=== PATIENT | female | born 1975 | race Caucasian/White ===

== ENCOUNTER → 2017-11-03 | Outpatient (CLI) | payer BC ==
--- NOTE | 2017-11-04 11:13 | MM ---
Reason for exam: screening (asymptomatic). Last mammogram was performed 1 year and 3 months ago. Physical Findings: A clinical breast exam by your physician is recommended on an annual basis and results should be correlated with mammographic findings. MG 3D Screening Mammo W/Cad Bilateral CC and MLO view(s) were taken. Prior study comparison: August 08, 2016, bilateral MG screening mammo w CAD. The breast tissue is heterogeneously dense. This may lower the sensitivity of mammography. There is a 4.6cm central slightly medial asymmetry at middle depth on the left breast 4cm from nipple. There is a 9.8mm area of distortion associated with a focal asymmetry in the lower inner quadrant of the left breast 7-8cm from nipple. ASSESSMENT: Incomplete: need additional imaging evaluation, BI-RAD 0 RECOMMENDATION: Special view mammogram of the left breast. If lesion persists on supplemental views, image directed ultrasound is recommended. [facility] will attempt to contact patient to return for supplemental views and ultrasound if indicated.
== END | disposition home or self-care (01) ==
LOC: RADMAMWWP 12:29
PROVIDERS: ATTEND Obstetrics & Gynecology
DX: Z12.31 Encounter for screening mammogram for malignant neoplasm of breast (principal)
CPT/HCPCS: 77063; G0202

== ENCOUNTER → 2018-05-18 | Outpatient (CLI) | payer BC ==
--- NOTE | 2018-05-18 08:59 | MM ---
Reason for exam: follow-up at short interval from prior study. Last mammogram was performed 6 months ago. History: Took hormonal contraceptives for 6 years beginning at age 22. Physical Findings: Nurse did not find any significant physical abnormalities on exam. MG 3D Diag Mammo W/Cad LT CC and MLO view(s) were taken of the left breast. Technologist: Allyssa Saldaña RT (R)(M) Prior study comparison: November 12, 2017, left breast MG 3d work up w/cad LT. November 03, 2017, bilateral MG 3d screening mammo w/cad. The breast tissue is heterogeneously dense. This may lower the sensitivity of mammography. 8 o'clock focal asymmetry is unchanged for 6 months. Additional short interval follow up recommended. Patient will be due for annual exam of the right breast at that time. These results were verbally communicated with the patient and result sheet given to the patient on 05/18/18. ASSESSMENT: Probably benign, BI-RAD 3 RECOMMENDATION: Follow-up diagnostic mammogram of both breasts in 6 months.
== END | disposition home or self-care (01) ==
LOC: RADMAMWWP 08:20
PROVIDERS: ATTEND Obstetrics & Gynecology
DX: R92.8 Other abnormal and inconclusive findings on diagnostic imaging of breast (principal)
CPT/HCPCS: 77061; 77065

== ENCOUNTER → 2018-11-16 | Outpatient (CLI) | payer BC ==
--- NOTE | 2018-11-16 10:17 | MM ---
Reason for exam: follow-up at short interval from prior study. Last mammogram was performed 6 months ago. History: Took hormonal contraceptives for 6 years beginning at age 22. Physical Findings: Nurse Summary: nodule in the right breast at 1 o'clock, 8 o'clock and 9 o'clock (nurse ms). MG 3D Diag Mammo W/Cad [facility] Bilateral CC and MLO view(s) were taken. Prior study comparison: May 18, 2018, left breast MG 3d diag mammo w/cad LT. November 12, 2017, left breast MG 3d work up w/cad LT. The breast tissue is heterogeneously dense. This may lower the sensitivity of mammography. Medial left breast nodularity is smaller than prior. Inferior asymmetry is unchanged from 2016. No significant new findings when compared with previous films. These results were verbally communicated with the patient and result sheet given to the patient on 11/16/18. ASSESSMENT: Benign, BI-RAD 2 RECOMMENDATION: Routine screening mammogram of both breasts in 1 year.
== END ==
LOC: RADMAMWWP 08:55
PROVIDERS: ATTEND Obstetrics & Gynecology
DX: R92.8 Other abnormal and inconclusive findings on diagnostic imaging of breast (principal)
CPT/HCPCS: 77062; 77066

== ENCOUNTER → 2020-11-28 | Outpatient (CLI) | payer BC ==
--- NOTE | 2020-11-29 14:13 | MM ---
Reason for exam: screening (asymptomatic). Last mammogram was performed 2 years ago. History: Took hormonal contraceptives for 6 years beginning at age 22. Physical Findings: A clinical breast exam by your physician is recommended on an annual basis and results should be correlated with mammographic findings. MG 3D Screening Mammo W/Cad Bilateral CC and MLO view(s) were taken. Prior study comparison: November 16, 2018, bilateral MG 3d diag mammo w/cad [facility]. May 18, 2018, left breast MG 3d diag mammo w/cad LT. The breast tissue is extremely dense which could obscure a lesion on mammography. No significant changes when compared with prior studies. ASSESSMENT: Benign, BI-RAD 2 RECOMMENDATION: Routine screening mammogram of both breasts in 1 year.
== END | disposition home or self-care (01) ==
LOC: RADMAMWWP 08:34
PROVIDERS: ATTEND Obstetrics & Gynecology
DX: Z12.31 Encounter for screening mammogram for malignant neoplasm of breast (principal)
CPT/HCPCS: 77063; 77067

== ENCOUNTER → 2022-06-21 | Outpatient (CLI) | payer BC ==
--- NOTE | 2022-06-22 02:23 | MR ---
EXAMINATION TYPE: MR shoulder RT wo con DATE OF EXAM: 06/21/2022 COMPARISON: None HISTORY: Right shoulder pain, decreased ROM. Multiplanar multiecho imaging of the right shoulder with no contrast. The subscapularis tendon is intact. Biceps tendon is intact. There is minute shoulder joint effusion. AC joint is intact. Subscapularis tendon is intact. The glenoid babak appear intact. The supraspinatus tendon is intact. The infraspinatus tendon is intact. There is a small linear area of decreased signal in the glenoid that could be old healed fracture line. IMPRESSION: No evidence of rotator cuff tear. Linear area of decreased signal in the glenoid without bone edema c ould be an old fracture.
== END | disposition home or self-care (01) ==
LOC: RADMRIMAIN 18:24
PROVIDERS: ATTEND Family Medicine
DX: S46.001A Unspecified injury of muscle(s) and tendon(s) of the rotator cuff of right shoulder, initial encounter (principal); X58.XXXA Exposure to other specified factors, initial encounter

== ENCOUNTER → 2022-08-22 | Outpatient (CLI) | payer BC ==
--- NOTE | 2022-08-23 07:36 | MM ---
Reason for Exam: Screening (asymptomatic). Last mammogram was performed 1 year(s) and 9 month(s) ago. Patient History: Menarche at age 15. First Full-Term at age 29. Hormonal Contraceptives for 6 years from age 22 until age 28. Risk Values: Ana 5 year model risk: 0.9%. NCI Lifetime model risk: 10.6%. Prior Study Comparison: 05/18/2018 Left Diagnostic Mammogram, [facility]. 11/16/2018 Bilateral Diagnostic Mammogram, [facility]. 11/28/2020 Bilateral Screening Mammogram, [facility]. Tissue Density: The breast tissue is heterogeneously dense. This may lower the sensitivity of mammography. Findings: Analyzed By CAD. There is no suspicious group of microcalcifications. Asymmetry demonstrated within the left breast centrally middle depth on the CC view. Overall Assessment: Incomplete: need additional imaging evaluation, BI-RAD 0 Management: Diagnostic Mammogram of the left breast. A clinical breast exam by your physician is recommended on an annual basis and results should be correlated with mammographic findings. [facility] will attempt to contact patient to return for supplemental views and ultrasound if indicated. Electronically signed and approved by: Raheel Valle D.O.
== END | disposition home or self-care (01) ==
LOC: RADMAMWWP 07:16
PROVIDERS: ATTEND Obstetrics & Gynecology
DX: Z12.31 Encounter for screening mammogram for malignant neoplasm of breast (principal)
CPT/HCPCS: 77063; 77067

== ENCOUNTER → 2022-08-29 | Outpatient (CLI) | payer BC ==
--- NOTE | 2022-08-29 15:03 | MM ---
Reason for Exam: Additional evaluation requested from prior study. Last screening mammogram was performed less than 1 month ago. Patient History: Menarche at age 15. First Full-Term at age 29. Hormonal Contraceptives for 6 years from age 22 until age 28. Risk Values: Ana 5 year model risk: 0.9%. NCI Lifetime model risk: 10.6%. Prior Study Comparison: 11/16/2018 Bilateral Diagnostic Mammogram, [facility]. 11/28/2020 Bilateral Screening Mammogram, [facility]. 08/22/2022 Bilateral MG 3D screening mammo w/cad, [facility]. Tissue Density: Left: The breast tissue is heterogeneously dense. This may lower the sensitivity of mammography. Findings: Analyzed By CAD. There is a 0.7 cm rounded density with circumscribed margins and posterior medial left breast 9:00 position. This is located 5 cm from the nipple. Additional evaluation with ultrasound is recommended. Overall Assessment: Incomplete: need additional imaging evaluation, BI-RAD 0 Management: Diagnostic Breast Ultrasound of the left breast. A negative mammogram report should not preclude additional follow up of suspicious palpable abnormalities. Patient should continue monthly self breast exam. A clinical breast exam by your physician is recommended on an annual basis and results should be correlated with mammographic findings. Electronically signed and approved by: Jorden Cummings D.O. Radiologis
--- NOTE | 2022-08-29 15:39 | USB ---
Reason for Exam: Additional evaluation requested from abnormal screening. Patient History: Menarche at age 15. First Full-Term at age 29. Hormonal Contraceptives for 6 years from age 22 until age 28. Risk Values: Ana 5 year model risk: 0.9%. NCI Lifetime model risk: 10.6%. Technique: Method: Targeted. Prior Study Comparison: 11/16/2018 Bilateral Diagnostic Mammogram, [facility]. 11/28/2020 Bilateral Screening Mammogram, [facility]. 08/22/2022 Bilateral MG 3D screening mammo w/cad, [facility]. Findings: The medial section of the breast of the left breast and the retroareolar of the left breast were scanned. At the 9:00 position 7 cm from nipple there is a 0.4 x 0.6 x 0.2 cm cyst. At the 10:00 position 5 cm the nipple there is a 0.7 x 0.6 x 0.5 cm cyst. At the 8:00 position 5 cm from the nipple there is a 0.6 x 0.6 x 0.3 cm cyst. This has good through transmission and posterior wall enhancement. This appears to correspond to the mammographic finding.. Overall Assessment: Benign, BI-RAD 2 Management: Diagnostic Mammogram of the left breast in 6 months. A clinical breast exam by your physician is recommended on an annual basis and results should be correlated with mammographic findings. Electronically signed and approved by: Jorden Cummings D.O. Radiologis
== END | disposition home or self-care (01) ==
LOC: RADMAMWWP 14:20
PROVIDERS: ATTEND Obstetrics & Gynecology
DX: R92.8 Other abnormal and inconclusive findings on diagnostic imaging of breast (principal)
CPT/HCPCS: 77061; 77065

== ENCOUNTER → 2023-02-20 | Outpatient (CLI) | payer BC ==
--- NOTE | 2023-02-20 15:18 | MM ---
Reason for Exam: Follow-up at short interval from prior study. Last screening mammogram was performed 6 month(s) ago. Patient History: Menarche at age 15. First Full-Term at age 29. Premenopausal. Hormonal Contraceptives for 6 years from age 22 until age 28. Risk Values: Ana 5 year model risk: 0.9%. NCI Lifetime model risk: 10.5%. Prior Study Comparison: 11/28/2020 Bilateral Screening Mammogram, [facility]. 08/22/2022 Bilateral MG 3D screening mammo w/cad, [facility]. 08/29/2022 Left MG 3D work up w/cad , [facility]. Tissue Density: Left: The breast tissue is heterogeneously dense. This may lower the sensitivity of mammography. Findings: Analyzed By CAD. The previous central nodularity has resolved. There is a new 8 mm nodularity medially at the 8:00 position middle depth for which ultrasound is recommended. Otherwise, no significant change. Overall Assessment: Incomplete: need additional imaging evaluation, BI-RAD 0 Management: Diagnostic Breast Ultrasound of the left breast. Electronically signed and approved by: Мария Andrews M.D. Radiologist
--- NOTE | 2023-02-20 15:55 | USB ---
Reason for Exam: Follow-up at short interval from prior study. Patient History: Menarche at age 15. First Full-Term at age 29. Premenopausal. Hormonal Contraceptives for 6 years from age 22 until age 28. Risk Values: Ana 5 year model risk: 0.9%. NCI Lifetime model risk: 10.5%. Technique: Method: Targeted. Prior Study Comparison: 11/28/2020 Bilateral Screening Mammogram, [facility]. 08/22/2022 Bilateral MG 3D screening mammo w/cad, [facility]. 08/29/2022 Left MG 3D work up w/cad , [facility]. Findings: The lower inner quadrant of the left breast, the axilla of the left breast and the retroareolar of the left breast were scanned. Targeted ultrasound 8 o'clock position left breast including the subareolar region and axilla. At the 8o'clock position, 5 cm from the nipple, likely mammographic correlate, there is a 7 x 5 x 5 mm benign cyst. No other solid or cystic lesion. Overall Assessment: Probably benign, BI-RAD 3 Management: Diagnostic Mammogram of the left breast in 6 months. 1. Patient should continue monthly self breast exams. 2. A clinical breast exam by your physician is recommended on an annual basis. 3. This exam should not preclude additional follow-up of suspicious palpable abnormalities. Electronically signed and approved by: Мария Andrews M.D. Radiologist
== END | disposition home or self-care (01) ==
LOC: RADMAMWWP 14:16
PROVIDERS: ATTEND Obstetrics & Gynecology
DX: R92.8 Other abnormal and inconclusive findings on diagnostic imaging of breast (principal)
CPT/HCPCS: 77061; 77065

== ENCOUNTER → 2023-03-18 | Outpatient (CLI) | payer BC | END | disposition home or self-care (01) | LOC: LABWHC1 11:21 | PROVIDERS: ATTEND Otolaryngology | DX: J30.89 Other allergic rhinitis (principal) | CPT/HCPCS: 36415 ==

== ENCOUNTER → 2023-04-23 | Outpatient (CLI) | payer BC | END | disposition home or self-care (01) | LOC: LABWHC1 10:37 | PROVIDERS: ATTEND Otolaryngology | DX: M54.2 Cervicalgia (principal) | CPT/HCPCS: 36415; 86376 ==

== ENCOUNTER → 2023-05-19 | Outpatient (CLI) | payer BC ==
--- NOTE | 2023-05-21 22:24 | CT ---
EXAMINATION TYPE: CT soft tissue neck wo/w con CT DLP: 680 mGycm, Automated exposure control for dose reduction was used. DATE OF EXAM: 05/19/2023 9:08 AM COMPARISON: None. CLINICAL INDICATION:Female, 48 years old with history of M54.2; [facility], TECHNIQUE: Standard enhanced CT of the neck. Axial sections with coronal and sagittal reformats were obtained. Contrast used: 100 cc of Isovue 300 Oral contrast used: none. FINDINGS: Brain: Visualized portions are grossly unremarkable. Orbits: Unremarkable Sinuses: Grossly unremarkable. Spaces of the neck: Clear and symmetric. No organizing fluid collection or mass. Musculoskeletal: No acute osseous pathology. Lymph nodes: Multiple nonenlarged lymph nodes are seen along both anterior chains of the neck. Vascular structures: Visualized major arteries are patent without evidence of aneurysm. Thoracic Inlet/airway: Airway is patent. The lung apices are clear. Soft tissues/Thyroid: Thyroid and remainder of the soft tissues are unremarkable. Other: none. IMPRESSION No definite evidence for abscess or significant abnormality to explain the patient's right neck pain consider evaluation with MRI.
== END | disposition home or self-care (01) ==
LOC: RADCTMAIN 08:19
PROVIDERS: ATTEND Otolaryngology
DX: M54.2 Cervicalgia (principal)
CPT/HCPCS: 70492; Q9967

== ENCOUNTER → 2023-09-05 | Outpatient (CLI) | payer BC ==
--- NOTE | 2023-09-05 10:00 | MM ---
Reason for Exam: Follow-up at short interval from prior study. Last mammogram was performed 1 year(s) and 1 month(s) ago. Patient History: Menarche at age 15. First Full-Term at age 29. Premenopausal. Hormonal Contraceptives for 6 years from age 22 until age 28. Risk Values: Ana 5 year model risk: 0.9%. NCI Lifetime model risk: 10.5%. Prior Study Comparison: 11/28/2020 Bilateral Screening Mammogram, [facility]. 08/22/2022 Bilateral MG 3D screening mammo w/cad, [facility]. 08/29/2022 Left MG 3D work up w/cad LT, [facility]. 02/20/2023 Left MG 3D diag mammo w/cad LT, [facility]. Tissue Density: The breast tissue is heterogeneously dense. This may lower the sensitivity of mammography. Findings: Analyzed By CAD. No distinct nodule or distortion is seen. No suspicious calcifications evident. Overall Assessment: Negative, BI-RAD 1 Management: Screening Mammogram of both breasts in 1 year. . Results were given to the patient verbally at the time of exam. Patient should continue monthly self-breast exams. A clinical breast exam by your physician is recommended on an annual basis. This exam should not preclude additional follow-up of suspicious palpable abnormalities. Note on Ana scores and lifetime risk: 1. A Ana score greater than 3% is considered moderate risk. If this is the case, consider specialist referral to assess eligibility for a risk reducing agent. 2. If overall lifetime risk for the development of breast cancer is 20% or higher, the patient may qualify for future screening with alternating mammogram and breast MRI. Electronically signed and approved by: Alec Browning M.D. Radiologis
== END | disposition home or self-care (01) ==
LOC: RADMAMWWP 09:33
PROVIDERS: ATTEND Obstetrics & Gynecology
DX: R92.333 Mammographic heterogeneous density, bilateral breasts (principal)
CPT/HCPCS: 77062; 77066

== ENCOUNTER → 2024-12-31 | Outpatient (CLI) | payer BC ==
--- NOTE | 2024-12-31 17:03 | CT ---
EXAMINATION TYPE: CT sinus wo con CT DLP: 455.1 mGycm, Automated exposure control for dose reduction was used. DATE OF EXAM: 12/31/2024 4:53 PM COMPARISON: CT soft tissue neck 05/19/2023. CLINICAL INDICATION:Female, 49 years old with history of J01.01 ACUTE RECURRENT MAXILLARY SINUSITIS; [facility], Acute recurrent maxillary sinusitis. CONTRAST: None. TECHNIQUE: Multiple thin axial images were obtained through the paranasal sinuses without the use of IV contrast. Additional coronal and sagittal reformatted images were submitted for evaluation. FINDINGS: Frontal sinuses: Normally developed and aerated. Frontal Recess: Clear Maxillary Sinuses: Normally developed. The right maxillary sinus is well aerated. Minimal mucosal thi ckening of the inferior left maxillary sinus. The left maxillary wisdom tooth demonstrates some peria pical lucency with extension into the left sphenoid sinus. Maxillary Infundibula([facility]): Clear, No Jaren cells identified. Ethmoid sinuses: Normally developed and aerated. Ethmoidal notch: Protected and abutting the lateral lamina. Sphenoid sinuses: Normally developed and aerated. There is sellar sphenoid sinus pneumatization witho ut evidence of dehiscence. No dehiscence of carotid canal. No evidence of optic nerve dehiscence wit hin the sphenoid sinus. No evidence of Onodi cells. Sphenoethmoidal recesses: Clear. Nasal septum: Within normal limits.. Nasal Turbinates: Within normal limits. Mastoid air cells & middle ears: The air cells are clear. The middle ears are grossly unremarkable. Modified Soft tissues & Brain: Partially seen without gross abnormality. Globes are intact. Other: Cribriform plate demonstrates symmetric Keros classification type 2 cribriform plate. No evidence of bony dehiscence of skull base. Lamina papyracea is intact without evidence of remote orbital fracture or orbital prolapse into the e thmoid sinus. IMPRESSION: 1. Minimal mucosal thickening in the inferior left maxillary sinus. There is extension of the left ma xillary wisdom tooth into the left sphenoid sinus with some periapical lucency identified. Consider d ental evaluation. The remaining paranasal sinuses are clear. 2. The ostiomeatal units, frontonasal and sphenoethmoidal recesses are clear. [facility], , 12/31/2024 5:01 PM
== END | disposition home or self-care (01) ==
LOC: RADCTMAIN 16:23
PROVIDERS: ATTEND Otolaryngology
DX: J01.01 Acute recurrent maxillary sinusitis (principal); J34.89 Other specified disorders of nose and nasal sinuses
CPT/HCPCS: 70486

== ENCOUNTER → 2024-12-31 | Outpatient (CLI) | payer BC ==
--- NOTE | 2025-01-03 08:04 | MM ---
Reason for Exam: Screening (asymptomatic). Last mammogram was performed 1 year(s) and 3 month(s) ago. Patient History: Menarche at age 15. First Full-Term at age 29. Premenopausal. Hormonal Contraceptives for 6 years from age 22 until age 28. Risk Values: Ana 5 year model risk: 1.0%. NCI Lifetime model risk: 10.3%. Prior Study Comparison: 08/29/2022 Left MG 3D work up w/cad LT, [facility]. 02/20/2023 Left MG 3D diag mammo w/cad LT, [facility]. 09/05/2023 Bilateral MG 3D diag mammo w/cad [facility], [facility]. Tissue Density: The breasts are heterogeneously dense, which may obscure small masses. Findings: Analyzed By CAD. There is no suspicious group of microcalcifications or new suspicious mass in either breast. Overall Assessment: Negative, BI-RAD 1 Management: Screening Mammogram of both breasts in 1 year. Some advise annual screening ultrasound in patient's with background dense tissue. Patient should continue monthly self-breast exams. A clinical breast exam by your physician is recommended on an annual basis. This exam should not preclude additional follow-up of suspicious palpable abnormalities. Note on Ana scores and lifetime risk: 1. A Ana score greater than 3% is considered moderate risk. If this is the case, consider specialist referral to assess eligibility for a risk reducing agent. 2. If overall lifetime risk for the development of breast cancer is 20% or higher, the patient may qualify for future screening with alternating mammogram and breast MRI. [facility], , 01/03/2025 8:01 AM. Electronically signed and approved by: James Kang M.D.
== END | disposition home or self-care (01) ==
LOC: RADMAMWWP 15:54
PROVIDERS: ATTEND Family Medicine
DX: Z12.31 Encounter for screening mammogram for malignant neoplasm of breast (principal); R92.333 Mammographic heterogeneous density, bilateral breasts
CPT/HCPCS: 77063; 77067